=== PATIENT | female | born 1965 | race Two or more races ===

== ENCOUNTER 2025-04-17 12:44 | Emergency (ER) | payer BC ==
[~2025-04-17] VITALS: Ht 157.5 cm; Wt 60.3 kg
[2025-04-17] MEDS ORDERED: CEFTRIAXONE SODIUM 1,000 MG VIAL ONE (15:53)
[2025-04-17] MEDS ORDERED: CEFTRIAXONE SODIUM 1,000 MG VIAL IV ONE (16:00)
[2025-04-17 16:16] LABS: BASO % 0.1 % (0.1-1.2); EOS # 0.01 (0.04-0.54); EOS % 0.1 % (0.7-7.0); HEMATOCRIT 37.3 % (34.1-44.9); HEMOGLOBIN 12.6 g/dL (11.2-15.7); LYMPH # 1.05 (1.18-3.74); LYMPH % 11.8 % (19.3-53.1); MONO # 0.84 (0.24-0.82); MONO % 9.4 % (4.7-12.5); NEUT # 6.99 (1.56-6.13); NEUT % 78.4 % (34.0-71.1); PLATELET COUNT 207 K/uL (163-369); RED CELL DISTRIBUTION WIDTH 12.8 % (11.6-14.4)
[2025-04-17 17:00] LABS: BILIRUBIN TOTAL 0.6 mg/dL (0.3-1.2); CALCIUM 8.9 mg/dL (8.5-10.1); CREATININE SERUM 0.72 mg/dL (0.55-1.02); GFR 82.91; GLOBULINA 3.7 G/DL (2.4-3.5); POTASSIUM 3.81 mEq/L (3.5-5.1); TOTAL PROTEIN 7.7 gm/dL (6.4-8.2)
[2025-04-17 17:05] LABS: PH,URINE 5.5 (5.0-8.0); URINE APPEARANCE Clear; URINE BILIRRUBIN Negative (NEGATIVE); URINE BLOOD Negative; URINE COLOR Dark Yellow; URINE GLUCOSE Negative (NEGATIVE); URINE KETONE Negative (NEGATIVE); URINE LEUKOCYTE Large; URINE NITRATE Negative; URINE PROTEIN Negative (NEGATIVE); URINE UROBILINOGEN 0.2 E.U./dl
[2025-04-17 17:10] LABS: URINE BACTERIA 1620.2 uL (0.0-1933); URINE CAST 0.29 uL (0.0-1.40); URINE EPITHELIAL CELLS 6.6 uL (0.0-38.8); URINE RBC 55.6 uL (0.0-20.8); URINE WBC 821.2 uL (0.0-23.2)
[2025-04-17] MEDS ORDERED: CEPHALEXIN500 MG PO (17:24)
[2025-04-17] MEDS ORDERED: PHENAZOPYRIDINE HCL 100 MG TABLET PO ONE ×2 (17:56→18:00)
== END 2025-04-17 18:01 ==
LOC: ER 12:44
PROVIDERS: General Practice
DX: N39.0 Urinary tract infection, site not specified (principal); R31.9 Hematuria, unspecified; Z88.8 Allergy status to other drugs, medicaments and biological substances; R30.0 Dysuria; R10.2 Pelvic and perineal pain; R35.0 Frequency of micturition; B96.29 Other Escherichia coli [E. coli] as the cause of diseases classified elsewhere